=== PATIENT | female | born 1970 | race Two or more races ===

== ENCOUNTER 2019-05-27 18:37 | Emergency (ER) | payer BC ==
[~2019-05-27] VITALS: Ht 172.7 cm; Wt 59.0 kg
[2019-05-27] MEDS ORDERED: CATAPRES0.1 MG (18:48)
[2019-05-27] MEDS ORDERED: NORVASC2.5 MG (18:51)
[2019-05-27] MEDS ORDERED: TOPROL XL25 M1 (18:52)
== END 2019-05-27 21:40 | disposition home or self-care (01) ==
LOC: ER 18:37
DX: M62.81 Muscle weakness (generalized) (principal); R20.0 Anesthesia of skin; M50.322 Other cervical disc degeneration at C5-C6 level; D72.828 Other elevated white blood cell count